=== PATIENT | male | born 1970 | race Caucasian/White ===

== ENCOUNTER 2020-11-24 11:48 | Emergency (ER) | payer BC ==
--- NOTE | 2020-11-24 14:49 | EDM.PDOC ---
ED HPI GENERAL MEDICAL PROBLEM - General Chief Complaint: Allergic Reaction Stated Complaint: MED[facility] Time Seen by Provider: 11/24/20 13:20 Source of Information: Reports: Patient, EMS, Family History Limitations: Reports: Altered Mental Status - History of Present Illness INITIAL COMMENTS - FREE TEXT/NARRATIVE: 50-year-old male brought in after being stung on the left wrist by a wasp. It was painful initially but it did not seem to bother him, but a few minutes later he became lightheaded and when he sat down he then fainted. He seemed to be completely unconscious for up to 10 to 15 minutes with agonal breathing and EMS was called. On arrival he was becoming arousable, 1 mg of epi was given as well as IV Benadryl. He was confused in route but showed no signs of systemic reaction such as hives or mucosal swelling. Vitals remained stable in route. On arrival he showed some conjunctival erythema but no other objective findings other than confusion. Onset: Sudden Duration: Hour(s): (Stung within the last hour) Location: Reports: Other (Stung on the left hand) Severity: Moderate Associated Symptoms: Reports: Other (Nausea but no vomiting, confusion, mild headache) - Related Data Allergies Allergy/AdvReac Type Severity Reaction Status Date / Time No Known Allergies Allergy Verified 11/24/20 11:53 Home Meds: Home Meds NK [No Known Home Meds] 11/24/20 [History] Past Medical History Musculoskeletal History: Reports: Fracture Social & Family History - Tobacco Use Tobacco Use Status *Q: Never Tobacco User - Caffeine Use Caffeine Use: Reports: Coffee - Recreational Drug Use Recreational Drug Use: No ED ROS ALLERGIC REACTION - Review of Systems Review Of Systems: See Below Constitutional: Reports: Malaise HEENT: Denies: Vision Change Respiratory: Denies: Shortness of Breath GI/Abdominal: Reports: Nausea Musculoskeletal: Reports: Other (Left hand pain from the recent sting) Skin: Reports: Pallor ED EXAM GENERAL NO PERIP PULSE - Physical Exam Exam: See Below Exam Limited By: Altered Mental Status General Appearance: Alert, Anxious Eye Exam: Bilateral Eye: PERRL, Other (Bilateral conjunctival injection) Head: Atraumatic. No: Facial Swelling Neck: Non-Tender Respiratory/Chest: Lungs Clear Cardiovascular: Regular Rate, Rhythm. No: Tachycardia GI/Abdominal: Non-Tender Extremities: Normal Inspection. No: Pedal Edema Neurological: Inattentive, Confused, Slow to Respond Psychiatric: Flat Affect Skin Exam: Warm, Dry Course - Vital Signs Last Recorded V/S: Last Vital Signs Temp 98 F 11/24/20 13:16 Pulse 90 11/24/20 13:16 Resp 18 11/24/20 13:16 BP 113/59 L 11/24/20 13:16 Pulse Ox 99 11/24/20 13:16 - Re-Assessments/Exams Free Text/Narrative Re-Assessment/Exam: 11/24/20 14:47 Fluids were continued but no further treatment was given, the patient continued to slowly improve. After 2 hours of observation he was able to eat some food. A prescription for EpiPen's were given for future use but this may have been an intense vasovagal reaction as well. He is going to recheck with his primary providers when home. Departure - Departure Time of Disposition: 16:41 Disposition: Home, Self-Care 01 Clinical Impression: Bee sting reaction Qualifiers: Encounter type: initial encounter Injury intent: accidental or unintentional Qualified Code(s): T63.441A - Toxic effect of venom of bees, accidental (unintentional), initial encounter - Discharge Information Instructions: Bee, Wasp, or Hornet Sting, Adult Referrals: PCP,None [Primary Care Provider] - Forms: ED Department Discharge Care Plan Goals: Stay hydrated, increase activity as tolerated, and keep EpiPen close by to use with any future bee stings that becomes symptomatic. Consider rechecking with your primary provider to discuss possible allergy evaluation. Sepsis Event Note (ED) - Evaluation Sepsis Screening Result: No Definite Risk
== END 2020-11-24 16:41 | disposition home or self-care (01) ==
LOC: JP.ED 11:48
DX: T63.441A Toxic effect of venom of bees, accidental (unintentional), initial encounter (principal)
CPT/HCPCS: 99283